=== PATIENT | female | born 1950 | race Two or more races ===

== ENCOUNTER 2023-12-02 15:01 | Emergency (ER) | payer OTHER, SELFPAY ==
[2023-12-02 15:07] VITALS: BP 153/119
[2023-12-02 15:13] VITALS: BP 144/70
[2023-12-02 15:16] VITALS: BMI 24.6
--- NOTE | 2023-12-02 15:16 | ED.GENMED ---
History of Present Illness
General
Chief Complaint: Chest Pain
Source: patient
Exam Limitations: none
Time Seen by Provider: 12/02/23 15:03
Nursing documentation reviewed up to this point in time: agreed with
Travel History
Have you had any contact with someone who has COVID-19?: No
Do you have any symptoms of coronavirus? Fever > 100 degrees, chills, cough, shortness of breath, sore throat, loss of taste or smell, muscle aches, or headache?: No
History of Present Illness
History of Present Illness:
pt is a 73 y/o F
h/o anxiety
had just done some laundry
sat on her couch to watch tv at 1 pm and suddenly felt clammy, sob, chest pain center of chest, nonradiating; it ended up gradually worsening to 8/10
pain was worse with breathing
she felt lightheaded like she would pas [place]
she called her son in law who called her duaghter who called the neighbor, the neighbor came over and then called 911
pt says she had started to feel a little better before EMS got there but still had chest pain. she was given 1 SL nitro and asa and pain fully resolved
she no longer feels sob
no h/o CAD
thinks that she may have had a stress testing [facility] sometime ago when she was having some anxiety, she believes it was negative. She never followed up with a wire bound box machine operator. She has never been on any cholesterol or blood pressure medication.
She does not smoke. She always feels anxious. She is on mirtazapine and took it last evening
Past History
Past History
ED Past Medical History: Psychiatric (Anxiety)
ED Past Surgical History: None
Social History
Tobacco: Non-smoker
Alcohol: None
Drug: None
Personal: Single
Living: alone
Review of Systems
Review of Systems
Allergies reviewed?: Yes
All Other Systems: Not applicable
Phy Exam
Physical Exam
Physical Exam:
GENERAL: Alert , in no apparent distress
EYE: pupils equal and reactive
NECK: Supple
ENT: o/p clr, mmm.
CARDIAC: Regular rate and rhythm .no edema
no murmur
LUNGS: Clear breath sounds bilaterally, no acute respiratory distress, no wheezes/rales/rhonchi
ABDOMEN: Soft, without focal tenderness, no r/g, no cvat, normal bowel sounds
NEUROLOGICAL: Alert and oriented, no focal neuro deficits
SKIN: Warm and dry, skin intact.
MUSCULOSKELETAL: No edema, well perfused. neg marc's sign
PSYCH: Normal and appropriate interaction.
Scores
Heart Score for Chest Pain Patients
STEMI patient?: No
History: Moderately Suspicious
ECG: Nonspecific Repolarization
Age: >/= 65 years
Risk Factors: No Risk Factors
Troponin: </= Normal Limit
Heart Score for Chest Pain Patients: 4
Heart Score Risk: 20.3% MACE over next 6 weeks
Course
Orders/Labs/Results
Orders:
Orders
12/02/23 15:05
Electrocardiogram (*1) Urgent
Reason for Study: Chest Pain
EKG- Treatment ONCE
CR Chest - 2 Views Urgent
Comment:
Reason For Exam: chest pain
12/02/23 15:10
Complete Blood Count/With Diff Urgent
Comprehensive Metabolic Panel Urgent
NT-proBNP Urgent
Troponin I Urgent
12/02/23 15:11
PTT Urgent
12/02/23 16:25
EKG- Treatment ONCE
12/02/23 18:46
Troponin I Urgent
12/02/23 19:00
Electrocardiogram (*1) Urgent
Reason for Study: Chest Pain
Abnormal Lab Results
12/02/23
15:10
WBC 11.1 H 10^3/uL
(4.8-10.8)
MCV 79.6 L fL
(81.0-99.0)
MCH 26.5 L pg
(27.0-31.0)
MPV 11.2 H fL
(7.4-10.4)
Abs Immat Gran (auto) 0.1 H 10^3/uL
(0-0.05)
Absolute Neuts (auto) 8.1 H 10^3/uL
(1.4-6.5)
Absolute Monos (auto) 0.7 H 10^3/uL
(0.1-0.6)
Lymphocytes % 18.6 L %
(20.5-51.1)
Potassium 3.3 L mmol/L
(3.5-5.1)
BUN 20 H mg/dl
(7-17)
Glucose 183 H mg/dl
(70-99)
AST 49 H U/L
(14-36)
Alkaline Phosphatase 129 H U/L
(38-126)
12/02/23 15:10
12/02/23 15:10
Vital Signs
Initial and Last Documented VS:
Initial Vital Signs
Temp Pulse Resp BP Pulse Ox
98.4 F 104 20 153/119 99
12/02/23 15:07 12/02/23 15:07 12/02/23 15:07 12/02/23 15:07 12/02/23 15:07
Last Documented Vital Signs
Temp Pulse Resp BP Pulse Ox
98.4 F 100 19 148/81 97
12/02/23 15:07 12/02/23 19:00 12/02/23 19:00 12/02/23 19:00 12/02/23 19:00
MDM/Problems Addressed
Differential Diagnosis Includes:
ACS, anxiety, GERD, less likely PE
MDM/Problems Addressed:
73-year-old female with no cardiac history with history of anxiety presents with onset of chest discomfort, lightheadedness, nausea, clamminess, shortness of breath that started around 1 PM while she was on the couch. It lasted a total of 1 hour
and 40 minutes until EMS got there and she got a dose of sublingual nitro. Patient has had no pain since being in the emergency department. She said all of her symptoms have resolved. She has never had anything like this before. On exam the
patient was hypertensive and mildly tachycardic on arrival likely related to how anxious she was feeling, within a few minutes her heart rate and blood pressure came down. She has no risk factors for DVT or PE. Her workup here was reassuring.
given the concerning story, i consulted with cardiology on her arrivla
with he rnormal ekg and 1st neg trop they felt that if her 2nd 6 hour trop from pain onset was neg, that she could be discharged and f/u with stres test outpatient
this was in fact neg
her 2nd ekg did show a very subtle st dep as seen on the ems strip and i d/w dr. wallace who was aware and still recommended discharge
pt remained pain free here
She had minimally low K and was writte for potassium x 3 doses outpatient
*Critical Care Note
Total Time (30-74mins, 75-104mins- exclusive of procedures): Not Applicable
ED Attending Note
-
Portions of this chart may have been created with voice recognition software.� Occasional wrong word or��sound alike� substitutions may have occurred due to the inherent limitations of voice recognition software.
Discharge Plan
Departure
Patient Disposition: Home (Routine Discharge)
Date of Disposition: 12/02/23
Time of Disposition: 19:29
Patient with high blood pressure during this ER visit?: Yes
Condition: Fair
Covid-19: Not Applicable
Discharge Problem:
Chest pain
Instructions: Chest Pain (DC), BLOOD PRESSURE
Prescriptions:
New
potassium chloride 20 mEq packet
20 meq PO DAILY Qty: 3 0RF
No Action
mirtazapine 45 mg Tablet
45 mg PO DAILY@2100
cyanocobalamin (vitamin B-12) 1,000 mcg Tablet, Sublingual
1,000 mcg SUBLINGUAL DAILY
Referrals:
Ron Mejia MD [Family Provider] -
Ron Wallace MD [Active] - Follow up in 2-3 days (call tomorrow, you will need to call the office tos chedule your stress test)
Activity Restrictions/Additional Instructions:
You had 2 negative troponin enzymes today and the wire bound box machine operator felt that you could be safely discharged at this time. You will likely need to have an outpatient stress test. Either call the office tomorrow or they will be calling you to set up
this appointment
Your potassium was a little low. We gave you a dose of this in the emergency department. Please have this rechecked next week. Return for any recurrence of chest pain, shortness of breath, passing out, or any concerns
Interventions
Interventions:
*Risk Screen - Suicide Last Done: 12/02/23 15:07
*General Assessment Last Done: 12/02/23 15:07
*Neglect/Abuse Screening Last Done: 12/02/23 15:07
ED- Fall Risk Assessment Last Done: 12/02/23 15:13
*ED COVID-19 Vaccine History Last Done: 12/02/23 15:13
*Nursing Disposition Last Done: 12/02/23 19:56
ED- Cardiac Assessment Last Done: 12/02/23 15:13
Discharge Date and Time
Discharge Date/Time: 12/02/23 19:59
[2023-12-02 15:22] LABS: % Basophils 0.5 % (0-2); % Eosinophils 0.9 % (0-6); % Immature Granulocytes 0.5 % (0-0.5); % Lymphocytes 18.6 % (20.5-51.1); % Monocytes 6.5 % (1.7-9.3); Absolute Basophils 0.1 10^3/uL (0-0.2); Absolute Eosinophils 0.1 10^3/uL (0-0.7); Absolute Immature Granulocytes 0.1 10^3/uL (0-0.05); Absolute Lymphocytes 2.1 10^3/uL (1.2-3.4); Absolute Monocytes 0.7 10^3/uL (0.1-0.6); Absolute Neutrophils 8.1 10^3/uL (1.4-6.5); Hematocrit 39.9 % (37.0-47.0); Hemoglobin 13.3 g/dL (12.0-16.0); Mean Corp Hgb Conc. 33.3 g/dL (33.0-37.0); Mean Corpuscular Hgb 26.5 pg (27.0-31.0); Mean Corpuscular Volume 79.6 fL (81.0-99.0); Mean Platelet Volume 11.2 fL (7.4-10.4); Nucleated Red Blood Cells % 0 %; Platelet Count 217 10^3/uL (130-400); Red Blood Cell Count 5.01 10^6/uL (4.20-5.40); Red Cell Dist. Width 14.4 % (11.5-14.5); White Blood Cell Count 11.1 10^3/uL (4.8-10.8)
[2023-12-02 15:30] LABS: APTT 25.5 Sec (23.4-35.0)
[2023-12-02 15:35] LABS: ALT (SGPT) 12 U/L (0-35); AST (SGOT) 49 U/L (14-36); Albumin 4.1 g/dl (3.5-5.0); Alkaline Phosphatase 129 U/L (38-126); Blood Urea Nitrogen 20 mg/dl (7-17); Calcium 8.8 mg/dl (8.4-10.2); Carbon Dioxide 24 mmol/L (22-30); Chloride 107 mmol/L (98-107); Estimated Creatinine Clearance 62 ml/min; Glucose 183 mg/dl (70-99); Potassium 3.3 mmol/L (3.5-5.1); Sodium 138 mmol/L (135-145); Total Bilirubin 0.7 mg/dl (0.2-1.3); Total Protein 7.4 g/dl (6.3-8.2); eGFR > 60.00
[2023-12-02 15:44] LABS: NT-proBNP < 20.0 pg/ml; Troponin I < 0.012 ng/ml
[2023-12-02 16:00] VITALS: BP 163/67
--- NOTE | 2023-12-02 16:28 | CON.CAR ---
Addendum entered and electronically signed by Ron Mcmillan MD 12/02/23 17:27:
I saw and examined the patient.
The ANGLE SHEAR OPERATOR or PA's note was reviewed and I agree with the note.
Comment: General: Well developed, well nourished in NAD.
Neck: Supple, no JVD, HJR, carotids +2 B/L, no bruits bilaterally.
Heart: Non displaced PMI, RRR, no murmurs, No S3, S4, no rubs.
Lungs: Clear to auscultation bilaterally, no wheeze, rhonchi, rubs bilaterally,
normal expiratory phase.
Abdomen: Normal bowel sounds, soft, non-tender, non-distended.
Extremities: No clubbing, cyanosis or edema bilaterally.
Neuro: Grossly nonfocal, awake, alert and oriented x3.
Phuong has a history of anxiety/vasovagal syncope. She presented complaints of chest pain or shortness of breath. She normally is very active walks every day for at least a mile. She was sitting and developed chest discomfort. It was sharp and
worse with taking a deep breath. Symptoms progressed and she called fire rescue. Fire rescue gave nitroglycerin which may have helped symptoms. Her pain lasted approximately 1 hour and 20 minutes. She is pain-free at present.
Troponin is not detectable. ECG is relatively unremarkable with perhaps slight ST and T wave changes.
Await second troponin at 7 PM. If this is negative she will be discharged with plans for an outpatient stress test and follow-up with our office. Discussed with emergency room staff and daughter at bedside.
Original Note:
Consultation
Consultation Request
Date/Time Consultation Requested: 12/02/23
Date/Time Consultation Performed: 12/02/23
Requesting Provider: Libia SAENZ in ER
Performing Provider: Dr. Mcmillan
Reason for Consultation: Chest pain
Medical History
-
History of Present Illness:
Patient came to ER 12/02/2023 via EMS with chest pain and SOB. Patient lives alone and was at home today doing laundry. She sat on the sofa in her apartment and started to feel short of breath, substernal chest pain and diaphoresis. The chest
pain progressed and began to feel worse along with increasing shortness of breath. The patient felt lightheaded and near syncopal with urge to have a bowel movement. She then proceeded to have a successful bowel movement and felt dizzy upon
arising from the commode. When her chest discomfort persistent after approximately 60 to 90 minutes her family members called 911. The patient began to feel some improvement just prior to EMS arriving at her apartment. Patient was noted to have
a blood pressure of 189/95 by EMS. She was provided nitroglycerin sublingual x 1 along with aspirin 324 mg chewable x 1 and her pain then completely resolved and has not recurred. There is no history of CAD,, hypertension or diabetes. She does
have a prior history of anxiety and vasovagal syncope. She had a stress test at [facility] approximately 6 years ago after having a vasovagal event. She reports it was normal. She never followed up with cardiology after. She does see
her primary care doctor routinely. Unfortunately he recently retired and she is not established with a new provider yet. She remains very active and walks 30 minutes several days a week as well as walks 1 mile to the local grocery store on a
regular basis without chest pain, shortness of breath, dizziness or lightheadedness. Blood pressure on arrival to ER was 153/119 even after receiving nitroglycerin sublingual x 1 by paramedics prior to arrival. Blood pressure improved in ED to
140/74. The patient does not take any antihypertensive medications and feels her elevated blood pressure is likely related to anxiety. Initial troponin after about an 60-90 minutes of chest pain was undetectable. A second troponin is pending.
ECG by my review is normal sinus rhythm without acute ischemic changes, but reportedly an EKG performed by EMS prior to admission showed some nonspecific ST changes which again are no longer evident on current EKG.
PMH:
h/o anxiety
Vasovagal syncope
Past Medical History
Past Medical History: Other (in HPI)
Past Surgical History: Orthopedic (Right elbow surgery/reconstruction ) and Other (Bilateral cataract extraction)
Social History
Tobacco: Non-Smoker
Alcohol: None
Drug: None
Personal:
Living: Alone
Family History
Family History: Reviewed & Not Pertinent
Allergies / Home Medications
Allergy/AdvReac Type Severity Reaction Status Date / Time
No Known Allergies Allergy Unverified 12/02/23 15:06
Medication Instructions Recorded Confirmed Type
cyanocobalamin (vitamin B-12) 1,000 mcg sublingual DAILY 12/02/23 12/02/23 History
1,000 mcg sublingual tablet
mirtazapine 45 mg tablet 45 mg PO DAILY@2100 12/02/23 12/02/23 History
Review of Systems
-
History Source: Patient
All other systems: Negative unless noted
Physical Exam
Vital Signs
Temp Pulse Resp BP Pulse Ox
98.4 F 100 20 163/67 98
12/02/23 15:07 12/02/23 16:15 12/02/23 16:15 12/02/23 16:00 12/02/23 16:15
GEN: NAD, AAOx3
HEENT: EOMI, MMM
LUNGS: CTA, no wheezes/rales
CV: Reg, S1/S2, no murmur, rub or gallop
ABD: soft, BS+, NT/ND
EXT: No edema, clubbing or cyanosis
NEURO: Gross non-focal
SKIN: No rash, warm, dry, pink
Lab Results
12/02/23 15:10
12/02/23 15:10
Troponin I < 0.012 ng/ml 12/02/23 15:10
Ixq-N-Rrnuzgnwrrl Pept < 20.0 pg/ml 12/02/23 15:10
Impression / Plan
-
PCP: Dr. Ron Mejia
Cardiology: None, Initial consult Dr. Mcmillan
Impression:
Presented 12/02/2023 with Chest pain, SOB, dizziness
HTN urgency without known h/o HTN
Hypokalemia
h/o anxiety
Vasovagal syncope
Plan:
-Patient came to ER 12/02/2023 via EMS with chest pain and SOB. Patient lives alone and was at home today doing laundry. She sat on the sofa in her apartment and started to feel short of breath, substernal chest pain and diaphoresis. The chest
pain progressed and began to feel worse along with increasing shortness of breath. The patient felt lightheaded and near syncopal with urge to have a bowel movement. She then proceeded to have a successful bowel movement and felt dizzy upon
arising from the commode. When her chest discomfort persistent after approximately 60 to 90 minutes her family members called 911. The patient began to feel some improvement just prior to EMS arriving at her apartment. Patient was noted to have
a blood pressure of 189/95 by EMS. She was provided nitroglycerin sublingual x 1 along with aspirin 324 mg chewable x 1 and her pain then completely resolved and has not recurred. There is no history of CAD,, hypertension or diabetes. She does
have a prior history of anxiety and vasovagal syncope. She had a stress test at [facility] approximately 6 years ago after having a vasovagal event. She reports it was normal. She never followed up with cardiology after. She does see
her primary care doctor routinely. Unfortunately he recently retired and she is not established with a new provider yet. She remains very active and walks 30 minutes several days a week as well as walks 1 mile to the local grocery store on a
regular basis without chest pain, shortness of breath, dizziness or lightheadedness. Blood pressure on arrival to ER was 153/119 even after receiving nitroglycerin sublingual x 1 by paramedics prior to arrival. Blood pressure improved in ED to
140/74. The patient does not take any antihypertensive medications and feels her elevated blood pressure is likely related to anxiety. Initial troponin after about an 60-90 minutes of chest pain was undetectable. A second troponin is pending.
ECG by my review is normal sinus rhythm without acute ischemic changes, but reportedly an EKG performed by EMS prior to admission showed some nonspecific ST changes which again are no longer evident on current EKG.
-Presented to 03/16/2024 with chest pain, shortness of breath, dizziness and diaphoresis.
- Resolved with sublingual nitroglycerin x 1. Chest pain has not reoccurred. Initial troponin undetectable and EKG without ischemic changes. Chest x-ray unremarkable.
-Check second troponin and EKG. If second troponin negative patient can be discharged home. She was provided a card to call cardiology and schedule a follow-up for outpatient evaluation of chest pain to include echocardiogram and stress test
-Hypertensive urgency without history of hypertension. Blood pressure improved in emergency department. Does admit to long-term history of anxiety which may be playing a role. Encouraged patient to purchase blood pressure monitor and check it on
a regular basis at home.
-Hypokalemia, K3.3. Would replete.
Patient's daughter at bedside. Plan was discussed with patient daughter in emergency department physician medical technician assistant.
Data Reviewed
-
EKG: Report Reviewed by me, Discussed with Physician, Discussed with Patient and Discussed with Family
Radiology: Report Reviewed by me, Discussed with Physician, Discussed with Patient and Discussed with Family
Labs: Labs Reviewed by me, Discussed with Physician, Discussed with Patient and Discussed with Family
[2023-12-02 19:00] VITALS: BP 148/81
[2023-12-02 19:21] LABS: Troponin I < 0.012 ng/ml
== END 2023-12-02 19:59 | disposition home or self-care (01) ==
LOC: EMR 15:01
PROVIDERS: Physician Assistant; EMERGENCY PHYSICIAN Emergency Medicine; FAMILY PHYSICIAN Family Medicine; OTHER PHYSICIAN Internal Medicine Cardiovascular Disease
DX: R07.89 Other chest pain (principal); F41.9 Anxiety disorder, unspecified
CPT/HCPCS: 99285; 71046; 80053; 83880; 84484; 85025; 85730; 93005